=== PATIENT | female | born 1950 | race Caucasian/White ===

== ENCOUNTER 2020-08-15 20:11 | Inpatient (IN) | payer MEDICARE, OTHER ==
[~2020-08-15] VITALS: Ht 160 cm; Wt 91.6 kg
--- NOTE | 2020-08-15 20:15 | NUR ---
pt bibems from home c/o chest warmth and racing pulse x 1 1/2 hours. Pt aaox4. Pt denies pain, denies dizziness but states that she felt nausa an hour ago. Pt breathing evenly and unlabored. Emt at bedside doing EKG. Pt skin warm,dry, and intact. Iv rt hand 20g and rt AC 18g. pt changed into gown, attached to data warehousing architect and pox. pt kept comfortable with a warm blanket and call light within reach.
[2020-08-15] MEDS ORDERED: IV NS 0.9% 1,000 ML BAG IV ONE (20:30)
[2020-08-15 20:36] LABS: BASOPHILS # (AUTO) 0.1 /CMM (0.0-0.2); HEMOGLOBIN 14.8 g/dL (11.5-14.8); MONOCYTES # (AUTO) 0.8 /CMM (0.1-1.30); PLATELET COUNT (AUTO) 230 /CMM (150-450)
[2020-08-15 20:40] LABS: BASOPHILS % (AUTO) 1.1 % (0.0-2.0); EOSINOPHILS % (AUTO) 4.6 % (0.0-6.0); HEMATOCRIT 45 % (33-45); LYMPHOCYTES # (AUTO) 2.5 /CMM (0.8-4.8); LYMPHOCYTES % (AUTO) 24.8 % (20.0-44.0); MEAN CORPUSCULAR HGB CONC 33 g/dl (31.0-36.0); MEAN CORPUSCULAR VOLUME 86 fL (82-100); MONOCYTES % (AUTO) 8.1 % (2.0-12.0); NEUTROPHILS # (AUTO) 6.1 /CMM (1.8-8.9); NEUTROPHILS % (AUTO) 61.4 % (43.0-81.0)
[2020-08-15 21:01] LABS: B-TYPE NATRIURETIC PEPTIDE 84 PG/ML (0-125); CALCIUM, SERUM 9.9 mg/dL (8.5-10.1); CARBON DIOXIDE 27 mmol/L (21-32); CHLORIDE 104 mmol/L (98-107); CREATININE 0.9 mg/dL (0.6-1.3); GLUCOSE 125 mg/dL (74-106); POTASSIUM 3.4 mmol/L (3.5-5.1); SODIUM SERUM 141 mmol/L (136-145); UREA NITROGEN, BLOOD 17 mg/dL (7-18)
[2020-08-15 21:02] LABS: MAGNESIUM 2.1 mg/dL (1.8-2.4); PHOSPHORUS 2.9 mg/dL (2.5-4.9)
[2020-08-15 21:08] LABS: THYROID STIMULATING HORMONE 2.381 uIU/mL (0.358-3.74)
[2020-08-15] MEDS ORDERED: DILTIAZEM HCL 50 MG IV IV ONE (21:30)
--- NOTE | 2020-08-15 21:30 | NUR ---
COVID SWAB SENT TO LAB
--- NOTE | 2020-08-15 21:33 | NUR ---
PER DR SCHMIDT, HOLD CARDIZEM IF HEART RATE UNDER 100
--- NOTE | 2020-08-15 21:40 | NUR ---
DR. SCHMIDT SPEAKING WITH DR. ALYSSIA HOLT REGARDING ADMISSION
--- NOTE | 2020-08-15 22:37 | NUR ---
Lab called regarding negative covid result.
[2020-08-15] MEDS ORDERED: MAGNESIUM HYDROXIDE 30 ML UDC PO PRN (23:30)
[2020-08-15] MEDS ORDERED: ONDANSETRON HCL/PF 4 MG/2 ML VIAL IVP PRN (23:30)
[2020-08-15] MEDS ORDERED: ACETAMINOPHEN 325 MG TABLET PO PRN (23:30)
[2020-08-15] MEDS ORDERED: ZOLPIDEM TARTRATE 5 MG TABLET PO PRN (23:30)
[2020-08-16] MEDS ORDERED: ENOXAPARIN SODIUM 100 MG/ML DISP.SYRIN SQ SCH (00:14)
[2020-08-16] MEDS ORDERED: ENOXAPARIN SODIUM 100 MG/ML DISP.SYRIN SQ ONE (00:35)
--- NOTE | 2020-08-16 01:30 | NUR ---
pt sleeping comfortably, easily aroused
[2020-08-16 05:43] LABS: BASOPHILS # (AUTO) 0.1 /CMM (0.0-0.2); BASOPHILS % (AUTO) 1.1 % (0.0-2.0); EOSINOPHILS % (AUTO) 2.8 % (0.0-6.0); HEMATOCRIT 39 % (33-45); HEMOGLOBIN 12.9 g/dL (11.5-14.8); LYMPHOCYTES # (AUTO) 2.6 /CMM (0.8-4.8); MEAN CORPUSCULAR HGB CONC 33 g/dl (31.0-36.0); MEAN CORPUSCULAR VOLUME 85 fL (82-100); MONOCYTES # (AUTO) 0.7 /CMM (0.1-1.30); MONOCYTES % (AUTO) 8.5 % (2.0-12.0); NEUTROPHILS # (AUTO) 4.2 /CMM (1.8-8.9); NEUTROPHILS % (AUTO) 54.6 % (43.0-81.0); PLATELET COUNT (AUTO) 198 /CMM (150-450); RED BLOOD CELL COUNT(AUTO) 4.61 MIL/uL (4.0-5.2); WHITE BLOOD COUNT (AUTO) 7.8 K/uL (4.3-11.0)
[2020-08-16 06:15] LABS: ALBUMIN 2.8 g/dL (3.4-5.0); BILIRUBIN,TOTAL 0.3 mg/dL (0.2-1.0); CALCIUM, SERUM 9.1 mg/dL (8.5-10.1); CREATININE 0.7 mg/dL (0.6-1.3); MAGNESIUM 2.1 mg/dL (1.8-2.4); PHOSPHORUS 3.5 mg/dL (2.5-4.9); POTASSIUM 3.9 mmol/L (3.5-5.1); TOTAL PROTEIN, SERUM 5.9 g/dL (6.4-8.2)
--- NOTE | 2020-08-16 07:12 | NUR ---
GAVE REPORT TO OTONIEL ESTEVEZ FOR JANINE
[2020-08-16] MEDS ORDERED: EZET10TA32 PO (08:01)
[2020-08-16] MEDS ORDERED: OLME1TAB88 PO (08:01)
[2020-08-16] MEDS ORDERED: ROSU5TAB13 PO (08:01)
[2020-08-16] MEDS ORDERED: SERT50TA12 PO (08:01)
[2020-08-16] MEDS ORDERED: DEXL60CA3 PO (08:01)
[2020-08-16] MEDS ORDERED: DOCU250C21 PO (08:01)
[2020-08-16] MEDS ORDERED: ALPR0.255 PO (08:01)
[2020-08-16] MEDS ORDERED: METOPROLOL TARTRATE 25 MG TABLET ONE ×2 (08:22→17:10)
[2020-08-16] MEDS ORDERED: PANTOPRAZOLE 40 MG TABLET.DR PO ONE (08:23)
[2020-08-16] MEDS ORDERED: GLAT40SY SQ (08:24)
[2020-08-16] MEDS: PANTOPRAZOLE 40 MG TABLET.DR PO SCH (08:30)
[2020-08-16] MEDS ORDERED: ACETAMINOPHEN 325 MG TABLET ONE ×2 (08:36→20:31)
--- NOTE | 2020-08-16 08:42 | NUR ---
PATIENT IN BED AWAKE, HOOKED TO MONITOR. WILL CONTINUE TO MONITOR ACCORDINGLY
[2020-08-16] MEDS: METOPROLOL TARTRATE 25 MG TABLET PO SCH ×2 (09:11→18:00)
[2020-08-16] MEDS ORDERED: ALPRAZOLAM 0.25 MG TABLET PO PRN (10:00)
--- NOTE | 2020-08-16 10:31 | NUR ---
PERFUME MAKER AT BEDSIDE FOR PEMA
[2020-08-16] MEDS: APIXABAN 5 MG TABLET PO SCH ×2 (11:00→21:17)
[2020-08-16] MEDS: LOSARTAN POTASSIUM 50 MG TABLET PO SCH (11:00)
[2020-08-16] MEDS: SERTRALINE HCL 50 MG TABLET PO SCH (11:00)
[2020-08-16] MEDS ORDERED: HYDROCHLOROTHIAZIDE 25 MG TABLET ONE (12:14)
--- NOTE | 2020-08-16 12:16 | NUR ---
PATIENT SERVED LUNCH TRAY. ATE 80%
[2020-08-16] MEDS: HYDROCHLOROTHIAZIDE 25 MG TABLET PO SCH (12:17)
--- NOTE | 2020-08-16 16:25 | NUR ---
urine sample collected and sent to lab
[2020-08-16 17:03] LABS: BILIRUBIN,URINE NEGATIVE (NEGATIVE); COLOR,URINE YELLOW (YELLOW); LEUKOCYTE ESTERASE ,URINE NEGATIVE (NEGATIVE); NITRITE, URINE NEGATIVE (NEGATIVE); PROTEIN,URINE NEGATIVE (NEGATIVE); UGLUCOSE NEGATIVE (NEGATIVE); UROBILINOGEN,URINE 0.2 EU/dL (0.2)
--- NOTE | 2020-08-16 17:30 | NUR ---
PATIENT SERVED DINER TRAY. REFUSED TO EAT DINNER. PLACED FOOD TRAY AT BEDSIDE
[2020-08-16 17:34] LABS: BACTERIA,URINE Rare /HPF (None Seen); RBC,URINE 0-2 /HPF (0-2); SQUAMOUS EPITHELIAL CELL,UR Few /HPF (None Seen); WBC,URINE 0-2 /HPF (0-3)
[2020-08-16] MEDS: DOCUSATE SODIUM 250 MG CAPSULE PO SCH (18:00)
--- NOTE | 2020-08-16 18:55 | NUR ---
PATIENT IN BED ASLEEP, EASILY AROUSABLE BY VOICE. HOOKED TO MONITOR. VSS. NO C/O OF PAIN OR DISCOMFORT. CALL LIGHT WITHIN REACH. WILL CONTINUE TO MIONITOR ACCORDINGLY
--- NOTE | 2020-08-16 19:16 | NUR ---
REPORT GIVEN TO CYNDI FREDERICK FOR JANINE
--- NOTE | 2020-08-16 20:30 | NUR ---
PT'S SON NEAL REQUESTING FOR COSMETOLOGIST DR. BRINK TO SPEAK WITH PT'S FAMILY MD DR. HOLBROOK ([phone])
--- NOTE | 2020-08-16 20:31 | NUR ---
PATIENT IS COMPLAINING OF 3/10 HEADACHE. WILL MEDICATE PATIENT THROUGH PRN ORDER.
[2020-08-16] MEDS: ATORVASTATIN 10 MG TABLET PO SCH (21:17)
[2020-08-16] MEDS ORDERED: EZETIMIBE 10 MG TABLET PO SCH (22:00)
[2020-08-16] MEDS ORDERED: EZETIMIBE 10 MG TABLET ONE (22:10)
--- NOTE | 2020-08-17 05:19 | NUR ---
BED ASSIGNMENT 322-2
[2020-08-17 05:39] LABS: BASOPHILS # (AUTO) 0.1 /CMM (0.0-0.2); BASOPHILS % (AUTO) 1.1 % (0.0-2.0); EOSINOPHILS % (AUTO) 4.8 % (0.0-6.0); HEMATOCRIT 43 % (33-45); HEMOGLOBIN 14.4 g/dL (11.5-14.8); LYMPHOCYTES # (AUTO) 1.9 /CMM (0.8-4.8); LYMPHOCYTES % (AUTO) 22.7 % (20.0-44.0); MEAN CORPUSCULAR HGB CONC 34 g/dl (31.0-36.0); MEAN CORPUSCULAR VOLUME 85 fL (82-100); MONOCYTES # (AUTO) 0.5 /CMM (0.1-1.30); MONOCYTES % (AUTO) 6.1 % (2.0-12.0); NEUTROPHILS # (AUTO) 5.4 /CMM (1.8-8.9); NEUTROPHILS % (AUTO) 65.3 % (43.0-81.0); PLATELET COUNT (AUTO) 214 /CMM (150-450); RED BLOOD CELL COUNT(AUTO) 5.04 MIL/uL (4.0-5.2); WHITE BLOOD COUNT (AUTO) 8.2 K/uL (4.3-11.0)
[2020-08-17 05:48] LABS: CALCIUM, SERUM 9.9 mg/dL (8.5-10.1); CREATININE 0.6 mg/dL (0.6-1.3); PHOSPHORUS 3.4 mg/dL (2.5-4.9); POTASSIUM 3.7 mmol/L (3.5-5.1)
--- NOTE | 2020-08-17 06:06 | NUR ---
REPORT GIVEN TO MIKA FREDERICK FOR JANINE.
--- NOTE | 2020-08-17 06:46 | NUR ---
PATIENT TAKEN TO ASSIGNED ROOM FOR JANINE.
--- NOTE | 2020-08-17 07:30 | NUR ---
MS/RN New admission New admission from emergency room with diagnose of a-fib. Patient fully admitted, all orders noted and carried out. Oriented to new surroundings, call light within reach, all questions and concerns addressed. Will continue to monitor and ensure safety.
[2020-08-17 08:00] VITALS: BP 138/72
--- NOTE | 2020-08-17 09:00 | NUR ---
MS/RN Medications Morning medications administered as ordered.
[2020-08-17] MEDS: DOCUSATE SODIUM 250 MG CAPSULE PO SCH ×2 (09:06→17:02)
[2020-08-17] MEDS: SERTRALINE HCL 50 MG TABLET PO SCH (09:06)
[2020-08-17] MEDS: LOSARTAN POTASSIUM 50 MG TABLET PO SCH (09:07)
[2020-08-17] MEDS: METOPROLOL TARTRATE 25 MG TABLET PO SCH ×3 (09:07→17:02)
[2020-08-17] MEDS: HYDROCHLOROTHIAZIDE 25 MG TABLET PO SCH (09:08)
[2020-08-17] MEDS: APIXABAN 5 MG TABLET PO SCH ×2 (09:15→17:03)
[2020-08-17] MEDS: PANTOPRAZOLE 40 MG TABLET.DR PO SCH (09:15)
--- NOTE | 2020-08-17 10:30 | NUR ---
MS/RN S/B Dr Bateman Seen by Dr Bateman - EKG to be ordered, for possible discharge to home later today if no further episodes of a-fib on monitor and no complaints of chest pain. Encouraged to ambulate.
[2020-08-17] MEDS ORDERED: LOSA50TA3 PO (11:24)
[2020-08-17] MEDS ORDERED: ATOR10TA PO (11:24)
[2020-08-17] MEDS ORDERED: HYDR25TA4 PO (11:24)
[2020-08-17] MEDS ORDERED: METO25TA20 PO (11:24)
[2020-08-17] MEDS ORDERED: APIX5TAB PO (11:24)
[2020-08-17 16:00] VITALS: BP 116/81
[2020-08-17] MEDS: ATORVASTATIN 10 MG TABLET PO SCH (17:04)
--- NOTE | 2020-08-17 17:46 | NUR ---
MS/visual stylist Patient discharged to home in stable condition. Heplock removed, pressure dressing applied, name bands removed. All personal belongings returned to patient and signed for on personal belongings list. Provided with copy of medical record which is to be forwarded to her primary care doctor at follow up appointment. Copies of exit care also provided. Instructed to make follow up appointment with PCP in one week and also with Dr Bateman. Provided with telephone number and address for Dr Bateman. Patient stated understanding. Educated as to new medication which was being prescribed. Informed what each drug was for, and possible side effects. Paper copy of prescription provided at patient request, stating that the electronic prescription which had been sent electronically to her usual pharmacy would be closed tomorrow due to it being a holiday. Instructed to return to the nearest emergency room if experiencing chest pain or palpitations, patient again stated understanding. Telephone number of unit given, encouraged to call with any questions or concerns. Escorted to main lobby by SHIPPING [employer] RECEIVING [employer]AD via wheelchair.
== END 2020-08-17 17:20 | disposition home or self-care (01) | DRG 308 ==
LOC: ER 20:18 → TRANSITION 23:29 → UNDOADMIN 23:29 → TRANSITION 08-17 06:12 → TELE 08-17 06:12 → UNDODISIN 08-17 17:20
PROVIDERS: ADMIT Internal Medicine; ATTEND Nurse Practitioner Acute Care
DX: I48.91 Unspecified atrial fibrillation (principal); I50.33 Acute on chronic diastolic (congestive) heart failure; D68.59 Other primary thrombophilia; E87.6 Hypokalemia; G35 Multiple sclerosis; E66.9 Obesity, unspecified; Z68.35 Body mass index [BMI] 35.0-35.9, adult; Z20.822 Contact with and (suspected) exposure to COVID-19; Z74.09 Other reduced mobility
CPT/HCPCS: 36415; 71045-TC; 80048-TC; 80053-TC; 80061-TC; 81001; 83735-TC; 83880; 84100-TC; 84443-TC; 84484-TC; 85025-TC; 87081-TC; 93307-TC; 93970-TC; C9803; G0378; J1650; J2405; J7030